=== PATIENT | female | born 1980 | race Caucasian/White ===

== ENCOUNTER 2017-04-03 08:56 | Emergency (ER) | payer BC ==
--- NOTE | 2017-04-03 09:42 | EDM.PDOC ---
ED HPI GENERAL MEDICAL PROBLEM - General Chief Complaint: Genitourinary Problem Stated Complaint: LOWER RT PAIN Time Seen by Provider: 04/03/17 09:20 Source of Information: Reports: Patient, Family History Limitations: Reports: No Limitations - History of Present Illness INITIAL COMMENTS - FREE TEXT/NARRATIVE: 37-year-old usually healthy female who is been having lower abdominal pain, urinary frequency, and intermittent right flank pain for the past week to 10 days. She was seen in the clinic a week ago, a urine was obtained and she was told she had a "urinary tract infection". However she was called 2 days ago and told that the culture was negative so stopped the antibiotic. She seemed to be improving somewhat while on the antibiotic which was nitrofurantoin. Over the last 12 hours the pain is gotten much worse, she looks very uncomfortable and is complaining of pain in the right lower abdomen radiating around the right flank. No fevers or chills, no significant nausea or vomiting. Onset: Unknown/Unsure (Symptoms have been ongoing for 7-10 days) Duration: Day(s): (10 days) Location: Reports: Abdomen, Back Quality: Reports: Sharp, Stabbing Severity: Moderate Associated Symptoms: Denies: Chest Pain, Cough, Fever/Chills, Shortness of Breath Right Flank Pain Score (Numeric/FACES): 7 - Related Data Allergies Allergy/AdvReac Type Severity Reaction Status Date / Time codeine AdvReac Abdominal Verified 04/03/17 09:18 Pain Home Meds: Home Meds Citalopram [Celexa] 20 mg PO BEDTIME 04/03/17 [History] atorvaSTATin [Lipitor] 20 mg PO BEDTIME 04/03/17 [History] Past Medical History Cardiovascular History: Reports: High Cholesterol 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 Denies: Fever, Chills HEENT: Reports: No Symptoms Respiratory: Denies: Shortness of Breath Cardiovascular: Denies: Chest Pain GI/Abdominal: Reports: Abdominal Pain : Reports: Dysuria, Frequency, Urgency Skin: Reports: No Symptoms Neurological: Reports: No Symptoms Psychiatric: Reports: Anxiety ED EXAM, GENERAL - Physical Exam Exam: See Below Exam Limited By: No Limitations General Appearance: Alert, Anxious, Mild Distress Respiratory/Chest: No Respiratory Distress, Lungs Clear Cardiovascular: Regular Rate, Rhythm GI/Abdominal: Soft, Tender (She does have tenderness to palpation across the lower abdomen especially the right side) Back Exam: No: CVA Tenderness (R), CVA Tenderness (L) Extremities: No: Pedal Edema Neurological: Alert, Oriented Psychiatric: Anxious Skin Exam: Warm, Dry Course - Vital Signs Last Recorded V/S: Last Vital Signs Temp 96.7 F 04/03/17 09:12 Pulse 79 04/03/17 11:11 Resp 16 04/03/17 11:11 BP 142/97 H 04/03/17 11:11 Pulse Ox 97 04/03/17 11:11 - Orders/Labs/Meds Orders: Active Orders 24 hr Category Date Time Status Abdomen Pelvis wo Cont [CT] Stat Exams 04/03/17 09:42 Taken Saline Lock Insert [OM.PC] Routine Oth 04/03/17 10:33 Ordered Labs: Laboratory Tests 04/03/17 04/03/17 04/03/17 Range/Units 09:10 09:56 09:56 WBC 8.2 (4.5-11.0) K/uL RBC 4.74 (3.30-5.50) M/uL Hgb 14.6 (12.0-15.0) g/dL Hct 42.2 (36.0-48.0) % MCV 89 (80-98) fL MCH 31 (27-31) pg MCHC 35 (32-36) % Plt Count 243 (150-400) K/uL Neut % (Auto) 73 H (36-66) % Lymph % (Auto) 18 L (24-44) % [place] % (Auto) 7 H (2-6) % Eos % (Auto) 1 L (2-4) % Baso % (Auto) 1 (0-1) % Sodium 141 (140-148) mmol/L Potassium 4.1 (3.6-5.2) mmol/L Chloride 104 (100-108) mmol/L Carbon Dioxide 30 (21-32) mmol/L Anion Gap 7.2 (5.0-14.0) mmol/L BUN 13 (7-18) mg/dL Creatinine 0.9 (0.6-1.0) mg/dL Est Cr Clr Drug Dosing 67.69 mL/min Estimated GFR (MDRD) > 60 (>60) Glucose 149 H (74-106) mg/dL Calcium 9.0 (8.5-10.1) mg/dL Urine Color Yellow Urine Appearance Cloudy Urine pH 7.0 (4.5-8.0) Ur Specific [place] 1.015 (1.008-1.030) Urine Protein Negative (NEGATIVE) mg/dL Urine Glucose (UA) Normal (NEGATIVE) mg/dL Urine Ketones Negative (NEGATIVE) mg/dL Urine Occult Blood Negative (NEGATIVE) Urine Nitrite Negative (NEGATIVE) Urine Bilirubin Negative (NEGATIVE) Urine Urobilinogen Normal (NORMAL) mg/dL Ur Leukocyte Esterase Negative (NEGATIVE) Urine RBC Not seen (0-5) Urine WBC 0-5 (0-5) Ur Epithelial Cells Few Amorphous Sediment Many Urine Bacteria Few Urine Mucus Not seen Meds: Medications Discontinued Medications Generic Name Dose Route Start Last Admin Trade Name Freq PRN Reason Stop Dose Admin Ketorolac Tromethamine 30 mg 04/03/17 10:31 04/03/17 10:41 Toradol IVPUSH 04/03/17 10:32 30 mg ONETIME ONE Administration Ondansetron HCl 4 mg 04/03/17 10:31 04/03/17 10:43 Zofran IVPUSH 04/03/17 10:32 4 mg ONETIME ONE Administration Sodium Chloride 10 ml 04/03/17 10:33 04/03/17 10:45 Saline Flush FLUSH 10 ml ASDIRECTED PRN Administration Keep Vein Open Tamsulosin HCl 0.4 mg 04/03/17 10:58 04/03/17 11:06 Flomax PO 04/03/17 10:59 0.4 mg ONETIME ONE Administration - Re-Assessments/Exams Free Text/Narrative Re-Assessment/Exam: 04/03/17 09:54 A quick catheter in and out urine was obtained which looked very normal. A CBC and BMP was then obtained and the patient was scanned for renal stone protocol, abdomen and pelvis without contrast. 04/03/17 10:39 CBC showed a normal white count and hemoglobin, BMP revealed a normal creatinine and GFR as well as normal electrolytes. 04/03/17 10:39 CT scan showed what appeared to be hydronephrosis on the right side. An IV was started and the patient was given 30 mg of Toradol and 4 mg of Zofran IV. 04/03/17 11:22 Radiologist confirmed a distal right ureteral stone, 5 mm with hydronephrosis. The patient responded extremely well to the IV medication. She was also given 0.4 mg of Flomax by mouth. She was discharged with additional doses of Toradol, 6 Vicodin and records and copies of the images and she will recheck in the next 24-48 hours when home if symptoms are persisting. Departure - Departure Time of Disposition: 11:35 Disposition: Home, Self-Care 01 Condition: Good Clinical Impression: Kidney stone, Renal colic on right side - Discharge Information Instructions: Kidney Stones, [id number] Referrals: PCP,None [Primary Care Provider] - Forms: ED Department Discharge Care Plan Goals: Take one ketorolac every 6 hours until pain is gone. Add stronger pain medication if needed, stay hydrated, and recheck in the next 24-48 hours if not improving satisfactorily. - My Orders Last 24 Hours: My Active Orders 04/03/17 09:42 Abdomen Pelvis wo Cont [CT] Stat 04/03/17 10:33 Saline Lock Insert [OM.PC] Routine - Assessment/Plan Last 24 Hours: My Active Orders 04/03/17 09:42 Abdomen Pelvis wo Cont [CT] Stat 04/03/17 10:33 Saline Lock Insert [OM.PC] Routine
[2017-04-03] MEDS ORDERED: Ketorolac 30 MG/ML SDV IVPUSH ONE (10:31)
[2017-04-03] MEDS ORDERED: Ondansetron 4 MG/2 ML SDV IVPUSH ONE (10:31)
[2017-04-03] MEDS ORDERED: Sodium Chloride 0.9% 10 ML Syringe FLUSH PRN (10:33)
[2017-04-03] MEDS ORDERED: Tamsulosin 0.4 MG Cap.ER PO ONE (10:58)
[2017-04-03 11:12] VITALS: BP 142/97
== END 2017-04-03 11:35 | disposition home or self-care (01) ==
LOC: JP.ED 08:56
DX: N13.2 Hydronephrosis with renal and ureteral calculous obstruction (principal); E78.00 Pure hypercholesterolemia, unspecified; Z88.5 Allergy status to narcotic agent
CPT/HCPCS: 36415; 74176; 80048; 81001; 85025; 96374; 96375; 99284; A9270; J1885; J2405; J7050